=== PATIENT | female | born 1985 | race African-American/Black ===

== ENCOUNTER 2017-02-15 13:30 | Emergency (ER) | payer SELFPAY ==
[~2017-02-15] VITALS: Ht 152.4 cm; Wt 53.1 kg
[2017-02-15 14:15] VITALS: BP 101/71
== END 2017-02-15 15:32 | disposition home or self-care (01) ==
LOC: ER 13:40
DX: S63.601A Unspecified sprain of right thumb, initial encounter (principal); J45.909 Unspecified asthma, uncomplicated; Z98.51 Tubal ligation status; Z88.6 Allergy status to analgesic agent; X58.XXXA Exposure to other specified factors, initial encounter; Y99.8 Other external cause status; Y93.89 Activity, other specified; Y92.488 Other paved roadways as the place of occurrence of the external cause
CPT/HCPCS: 73130

== ENCOUNTER 2018-09-04 15:51 | Emergency (ER) | payer MEDICAID ==
[~2018-09-04] VITALS: Ht 152.4 cm; Wt 53.5 kg
[2018-09-04] MEDS ORDERED: SODIUM CHLORIDE 0.9% 1,000 ML IV ONE (15:55)
[2018-09-04 16:15] VITALS: BP 117/76
[2018-09-04 16:54] LABS: Albumin 3.9 g/dL (3.4-5.0); Anion Gap 5 (5-15); Blood Urea Nitrogen 9 mg/dL (7-18); Calcium 8.4 mg/dL (8.5-10.1); Carbon Dioxide 26 mmol/L (21-32); Chloride 107 mmol/L (98-107); Glucose 78 mg/dL (74-106); Magnesium 2.3 mg/dL (1.6-2.6); Potassium 3.8 mmol/L (3.5-5.1); Sodium 138 mmol/L (136-145)
[2018-09-04 17:00] LABS: Alanine Aminotransferase 20 U/L (13-56); Alkaline Phosphatase 45 U/L (45-117); Aspartate Aminotransferase 21 U/L (15-37); BUN/Creatinine Ratio 13.6; Bilirubin, Total 0.8 mg/dL (0.2-1.0); GFR African American 132 mL/min; GFR Non-African American 109 mL/min; Total Protein 7.6 g/dL (6.4-8.2)
[2018-09-04 17:09] LABS: Basophils # (auto) 0 uL; Eosinophils # (auto) 0.1 uL; Lymphocytes # (auto) 1.3 uL; Monocytes # (auto) 0.8 uL
[2018-09-04 17:12] LABS: Basophils % (auto) 0.6 % (0.0-2.0); Eosinophils % (auto) 1.7 % (0.0-7.0); Hemoglobin 10.4 g/dL (12.2-16.2); Lymphocytes % (auto) 19.9 % (10.0-50.0); Mean Corpuscular Hemoglobin 25.3 pg (28.0-32.0); Mean Corpuscular Hgb Conc. 32.4 g/dL (32.0-36.0); Mean Corpuscular Volume 77.9 fL (80.0-100.0); Monocytes % (auto) 12.2 % (0.0-12.0); Neutrophils # (auto) 4.3 uL; Neutrophils % (auto) 65.6 % (37.0-80.0); Platelet Count (auto) 303 10^3/uL (140-450); Red Blood Cells 4.11 10^6/uL (4.0-5.20); Red Cell Distribution Width 15.7 % (11.8-14.3); White Blood Cell 6.5 10^3/uL (4.4-10.8)
[2018-09-04 17:22] LABS: INR 1.02 (0.9-1.15); Partial Thromboplastin Time 32.1 sec (23.78-33.04); Prothrombin Time 10.9 sec (9.27-12.13)
[2018-09-04 18:03] LABS: Urine Bacteria NONE SEEN /hpf (None Seen); Urine Blood TRACE /uL (Negative); Urine Specific Gravity 1.013 (1.001-1.035); Urine WBC 1 /hpf (0 - 5)
== END 2018-09-04 19:00 | disposition left against medical advice (07) ==
LOC: EDBD 15:51 → ER 15:54
DX: R55 Syncope and collapse (principal); R11.2 Nausea with vomiting, unspecified; R06.02 Shortness of breath; Z88.6 Allergy status to analgesic agent
CPT/HCPCS: 36415; 70450; 80053; 81001; 81025; 82962; 83735; 84484; 85025; 85610; 85730; 94761

== ENCOUNTER 2019-06-12 11:09 | Emergency (ER) | payer MEDICAID ==
[~2019-06-12] VITALS: Ht 177.8 cm; Wt 50.8 kg
[2019-06-12 12:07] VITALS: BP 112/73
[2019-06-12 12:11] LABS: Urine Bacteria NONE SEEN /hpf (None Seen); Urine Blood TRACE /uL (Negative); Urine Mucus FEW (None Seen); Urine Specific Gravity 1.021 (1.001-1.035); Urine WBC 1 /hpf (0 - 5)
== END 2019-06-12 14:28 | disposition home or self-care (01) ==
LOC: ER 11:09
DX: R10.2 Pelvic and perineal pain (principal); J45.909 Unspecified asthma, uncomplicated; Z87.42 Personal history of other diseases of the female genital tract; Z88.5 Allergy status to narcotic agent; Z88.8 Allergy status to other drugs, medicaments and biological substances
CPT/HCPCS: 76856; 81001

== ENCOUNTER 2020-04-23 14:46 | Emergency (ER) | payer MEDICAID ==
[~2020-04-23] VITALS: Ht 154.9 cm; Wt 54.4 kg
[2020-04-23 14:55] VITALS: BP 106/68
[2020-04-23 16:48] LABS: Urine Amorphous Crystal FEW /hpf (None Seen); Urine Bacteria FEW /hpf (None Seen); Urine Blood Negative /uL (Negative); Urine Mucus FEW (None Seen); Urine Specific Gravity 1.017 (1.001-1.035); Urine WBC 4 /hpf (0 - 5)
== END 2020-04-23 18:43 | disposition left against medical advice (07) ==
LOC: ER 14:46
DX: R10.31 Right lower quadrant pain (principal); Z53.21 Procedure and treatment not carried out due to patient leaving prior to being seen by health care provider
CPT/HCPCS: 81001; 81025

== ENCOUNTER 2020-05-04 11:38 | Emergency (ER) | payer MEDICAID ==
[~2020-05-04] VITALS: Ht 152.4 cm; Wt 54.4 kg
[2020-05-04 12:25] LABS: Urine Bacteria NONE SEEN /hpf (None Seen); Urine Blood Negative /uL (Negative); Urine Mucus FEW (None Seen); Urine Specific Gravity 1.017 (1.001-1.035); Urine WBC 2 /hpf (0 - 5)
[2020-05-04 13:31] LABS: Basophils # (auto) 0.1 10 ^3/uL (0-0.2); Eosinophils # (auto) 0.1 10 ^3/uL (0-0.8); Eosinophils % (auto) 1.9 % (0.0-7.0); Hematocrit 33.4 % (36.0-46.0); Hemoglobin 10.7 g/dL (12.2-16.2); Lymphocytes # (auto) 1.1 10 ^3/uL (0.4-5.4); Lymphocytes % (auto) 21.1 % (10.0-50.0); Mean Corpuscular Hemoglobin 24.4 pg (28.0-32.0); Mean Corpuscular Volume 76.1 fL (80.0-100.0); Monocytes # (auto) 0.5 10 ^3/uL (0-1.3); Monocytes % (auto) 9.6 % (0.0-12.0); Neutrophils # (auto) 3.5 10 ^3/uL (1.6-8.6); Neutrophils % (auto) 66.4 % (37.0-80.0); Nucleated Red Blood Cells % 0.1 %; Platelet Count (auto) 334 10^3/uL (140-450); Red Blood Cells 4.39 10^6/uL (4.0-5.20); Red Cell Distribution Width 16.4 % (11.8-14.3); White Blood Cell 5.3 10^3/uL (4.4-10.8)
[2020-05-04 13:51] VITALS: BP 113/81
[2020-05-04 14:58] LABS: Albumin 4.1 g/dL (3.4-5.0); Calcium 8.6 mg/dL (8.5-10.1); Potassium 3.9 mmol/L (3.5-5.1)
[2020-05-04] MEDS ORDERED: KETOROLAC TROMETH 60MG/2ML VIAL IM ONE (15:00)
[2020-05-04 15:01] LABS: BUN/Creatinine Ratio 6.8; Total Protein 7.9 g/dL (6.4-8.2)
[2020-05-04] MEDS ORDERED: KETOROLAC TROMETH 60MG/2ML VIAL ONE (15:03)
== END 2020-05-04 15:20 | disposition home or self-care (01) ==
LOC: ER 11:38
DX: R10.31 Right lower quadrant pain (principal); M54.41 Lumbago with sciatica, right side
CPT/HCPCS: 36415; 74176; 80053; 81001; 81025; 83690; 85025; 96372; 99284; J1885

== ENCOUNTER 2021-10-30 20:17 | Inpatient (IN) | payer MEDICAID ==
[~2021-10-30] VITALS: Ht 152.4 cm; Wt 68.2 kg
[2021-10-30] MEDS ORDERED: ONDANSETRON HCL 4 MG/2 ML VIAL IV ONE (20:45)
[2021-10-30] MEDS ORDERED: SODIUM CHLORIDE 0.9% 1,000 ML IV ONE (20:45)
[2021-10-30] MEDS ORDERED: HYDROmorphone HCL 2 MG/ML VL IV ONE (20:45)
[2021-10-30 21:27] LABS: Urine Bacteria NONE SEEN /hpf (None Seen); Urine Blood 1+ /uL (Negative); Urine Hyaline Cast FEW /lpf (0 - 2); Urine Specific Gravity 1.006 (1.001-1.035); Urine WBC 13 /hpf (0 - 5)
[2021-10-30 22:18] LABS: Basophils # (auto) 0 10 ^3/uL (0-0.2); Basophils % (auto) 0.3 % (0.0-2.0); Eosinophils # (auto) 0 10 ^3/uL (0-0.8); Eosinophils % (auto) 0.5 % (0.0-7.0); Hematocrit 30.3 % (36.0-46.0); Hemoglobin 9.9 g/dL (12.2-16.2); Lymphocytes # (auto) 0.7 10 ^3/uL (0.4-5.4); Mean Corpuscular Hemoglobin 24.7 pg (28.0-32.0); Mean Corpuscular Hgb Conc. 32.5 g/dL (32.0-36.0); Mean Corpuscular Volume 75.8 fL (80.0-100.0); Monocytes # (auto) 1.4 10 ^3/uL (0-1.3); Monocytes % (auto) 13.3 % (0.0-12.0); Neutrophils # (auto) 8.3 10 ^3/uL (1.6-8.6); Neutrophils % (auto) 78.9 % (37.0-80.0); Red Blood Cells 3.99 10^6/uL (4.0-5.20); White Blood Cell 10.5 10^3/uL (4.4-10.8)
[2021-10-30 22:37] LABS: Albumin 3.5 g/dL (3.4-5.0); Calcium 8.7 mg/dL (8.5-10.1); Potassium 3.5 mmol/L (3.5-5.1)
[2021-10-30 22:41] LABS: Bilirubin, Total 0.5 mg/dL (0.2-1.0); Total Protein 7.7 g/dL (6.4-8.2)
[2021-10-30] MEDS ORDERED: HYDROmorphone HCL 2 MG/ML VL IM ONE (23:30)
[2021-10-30] MEDS ORDERED: ONDANSETRON ODT 4 MG TAB PO ONE (23:30)
[2021-10-31 01:49] LABS: Amphetamine Screen, Urine NEGATIVE (NEGATIVE); Barbiturate Scree,Urine NEGATIVE (NEGATIVE); Benzodiazephine Screen, Urine NEGATIVE (NEGATIVE); Cannabinoid Screen, Urine NEGATIVE (NEGATIVE); Cocaine Screen, Urine NEGATIVE (NEGATIVE); Opiate Scree,Urine NEGATIVE (NEGATIVE); Phencyclidine Screen, Urine NEGATIVE (NEGATIVE)
[2021-10-31] MEDS ORDERED: cefTRIAXone SOD 1,000 MG VL IM ONE (02:15)
[2021-10-31] MEDS ORDERED: ACETAMINOPHEN 325 MG TAB PO PRN (03:15)
[2021-10-31] MEDS ORDERED: TEMAZEPAM 15 MG CAP PO PRN (03:15)
[2021-10-31] MEDS ORDERED: SODIUM CHLORIDE 0.9% 1,000 ML IV SCH (03:15)
[2021-10-31] MEDS ORDERED: cefTRIAXone 1GM/50ML D5W 50 ML IV ONE (03:45)
[2021-10-31 04:21] LABS: % Iron Saturation 4.6 % (15-50)
[2021-10-31] MEDS: AZITHROMYCIN 500MG/ 250ML 250 ML IV SCH ×2 (05:29→22:00)
[2021-10-31] MEDS: MORPHINE SULFATE 4 MG/ML SYR/VIAL IV PRN ×2 (05:32→13:00)
[2021-10-31] MEDS: ONDANSETRON HCL 4 MG/2 ML VIAL IV PRN ×2 (06:41→19:38)
[2021-10-31 10:10] VITALS: BP 97/64
[2021-10-31] MEDS: HYDROcodone-ACET 5/325MG TAB PO PRN ×2 (10:52→17:35)
[2021-10-31 12:43] VITALS: BP 106/69
[2021-10-31] MEDS: LACTATED RINGER'S 1,000 ML IV SCH ×2 (14:15→16:15)
[2021-10-31 17:21] VITALS: BP 92/55
[2021-10-31] MEDS: FERROUS SULFATE 325mg EC TAB PO SCH (17:35)
[2021-10-31] MEDS: cefTRIAXone 1GM/50ML D5W 50 ML IV SCH (21:08)
[2021-10-31] MEDS: HEPARIN SODIUM (PORCINE) 5000 UNITS/ML 1ML VIAL SC SCH (21:30)
[2021-10-31 21:40] VITALS: BP 102/53
[2021-11-01] MEDS: HYDROcodone-ACET 5/325MG TAB PO PRN (03:58)
[2021-11-01 05:00] VITALS: BP 100/59
[2021-11-01] MEDS: HEPARIN SODIUM (PORCINE) 5000 UNITS/ML 1ML VIAL SC SCH ×3 (06:26→22:18)
[2021-11-01 07:08] LABS: Basophils # (auto) 0 10 ^3/uL (0-0.2); Eosinophils # (auto) 0.1 10 ^3/uL (0-0.8); Hematocrit 28.8 % (36.0-46.0); White Blood Cell 6.5 10^3/uL (4.4-10.8)
[2021-11-01 07:10] LABS: Basophils % (auto) 0.5 % (0.0-2.0); Calcium 8.5 mg/dL (8.5-10.1); Eosinophils % (auto) 1.7 % (0.0-7.0); Hemoglobin 9.5 g/dL (12.2-16.2); Lymphocytes # (auto) 1.1 10 ^3/uL (0.4-5.4); Lymphocytes % (auto) 17.8 % (10.0-50.0); Magnesium 2.6 mg/dL (1.6-2.6); Mean Corpuscular Hemoglobin 24.7 pg (28.0-32.0); Mean Corpuscular Hgb Conc. 32.9 g/dL (32.0-36.0); Mean Corpuscular Volume 75.1 fL (80.0-100.0); Monocytes # (auto) 0.9 10 ^3/uL (0-1.3); Monocytes % (auto) 13.4 % (0.0-12.0); Neutrophils # (auto) 4.3 10 ^3/uL (1.6-8.6); Neutrophils % (auto) 66.6 % (37.0-80.0); Potassium 3.6 mmol/L (3.5-5.1); Red Blood Cells 3.84 10^6/uL (4.0-5.20); Red Cell Distribution Width 16.7 % (11.8-14.3)
[2021-11-01 07:12] LABS: BUN/Creatinine Ratio 3.7; Phosphorus 2.3 mg/dL (2.5-4.90)
[2021-11-01] MEDS: FERROUS SULFATE 325mg EC TAB PO SCH ×2 (08:00→18:17)
[2021-11-01] MEDS: ONDANSETRON HCL 4 MG/2 ML VIAL IV PRN (08:43)
[2021-11-01 09:00] VITALS: BP 109/63
[2021-11-01] MEDS ORDERED: POTASSIUM PHOSPHATE 26.4 MEQ in SODIUM CHL 0.9% 100 ML IV ONE (09:00)
[2021-11-01] MEDS: LACTATED RINGER'S 1,000 ML IV SCH (10:15)
[2021-11-01 13:00] VITALS: BP 116/68
[2021-11-01 17:00] VITALS: BP 108/71
[2021-11-01] MEDS: cefTRIAXone 1GM/50ML D5W 50 ML IV SCH (21:03)
[2021-11-01 22:00] VITALS: BP 115/77
[2021-11-01] MEDS: AZITHROMYCIN 500MG/ 250ML 250 ML IV SCH (22:18)
[2021-11-02] MEDS: HYDROcodone-ACET 5/325MG TAB PO PRN (00:07)
[2021-11-02] MEDS: ONDANSETRON HCL 4 MG/2 ML VIAL IV PRN (00:28)
[2021-11-02 05:00] VITALS: BP 103/55
[2021-11-02 05:40] LABS: Basophils # (auto) 0.1 10 ^3/uL (0-0.2); Eosinophils # (auto) 0.2 10 ^3/uL (0-0.8); Monocytes # (auto) 0.6 10 ^3/uL (0-1.3); Neutrophils # (auto) 3.4 10 ^3/uL (1.6-8.6)
[2021-11-02 05:42] LABS: Eosinophils % (auto) 3.2 % (0.0-7.0); Hematocrit 33.1 % (36.0-46.0); Hemoglobin 10.8 g/dL (12.2-16.2); Lymphocytes # (auto) 1.7 10 ^3/uL (0.4-5.4); Lymphocytes % (auto) 28.7 % (10.0-50.0); Mean Corpuscular Hemoglobin 24.6 pg (28.0-32.0); Mean Corpuscular Hgb Conc. 32.5 g/dL (32.0-36.0); Mean Corpuscular Volume 75.7 fL (80.0-100.0); Neutrophils % (auto) 57.1 % (37.0-80.0); Red Blood Cells 4.37 10^6/uL (4.0-5.20)
[2021-11-02] MEDS: HEPARIN SODIUM (PORCINE) 5000 UNITS/ML 1ML VIAL SC SCH (05:59)
[2021-11-02 06:07] LABS: Potassium 3.5 mmol/L (3.5-5.1)
[2021-11-02 06:12] LABS: BUN/Creatinine Ratio 5.1; Calcium 8.8 mg/dL (8.5-10.1); Phosphorus 3.3 mg/dL (2.5-4.90)
[2021-11-02] MEDS: FERROUS SULFATE 325mg EC TAB PO SCH ×2 (08:15→17:47)
[2021-11-02 09:00] VITALS: BP 109/74
[2021-11-02 13:00] VITALS: BP 112/73
[2021-11-02 17:00] VITALS: BP 104/69
[2021-11-02] MEDS: cefTRIAXone 1GM/50ML D5W 50 ML IV SCH (21:31)
[2021-11-02 21:56] VITALS: BP 105/47
[2021-11-02] MEDS: AZITHROMYCIN 500MG/ 250ML 250 ML IV SCH (23:03)
[2021-11-03 05:00] VITALS: BP 103/67
[2021-11-03] MEDS: FERROUS SULFATE 325mg EC TAB PO SCH (08:00)
[2021-11-03 09:00] VITALS: BP 108/73
[2021-11-03] MEDS ORDERED: ENOXAPARIN SOD 40 MG/0.4 ML SYRINGE SC SCH (10:00)
[2021-11-03 13:00] VITALS: BP 105/72
[2021-11-03] MEDS ORDERED: cefTRIAXone 1GM/50ML D5W 50 ML IV SCH (14:33)
[2021-11-03] MEDS ORDERED: AZIT250T8 PO (14:50)
[2021-11-03] MEDS ORDERED: FER325T PO (14:50)
[2021-11-03] MEDS ORDERED: CEFD300C2 PO (14:50)
[2021-11-03 16:31] VITALS: BP 105/72
[2021-11-03 16:59] VITALS: BP 111/74
== END 2021-11-03 17:45 | disposition home or self-care (01) | DRG 139 ==
LOC: ER 20:20 → OVERFLOW 10-31 03:02 → WEST WING 10-31 09:30
PROVIDERS: ADMIT Nurse Practitioner; ATTEND Hospitalist
DX: J18.9 Pneumonia, unspecified organism (principal); N17.9 Acute kidney failure, unspecified; E83.39 Other disorders of phosphorus metabolism; N39.0 Urinary tract infection, site not specified; N18.9 Chronic kidney disease, unspecified; D50.9 Iron deficiency anemia, unspecified; N20.0 Calculus of kidney; Z68.29 Body mass index [BMI] 29.0-29.9, adult; E66.3 Overweight; J45.909 Unspecified asthma, uncomplicated; F41.9 Anxiety disorder, unspecified; M79.661 Pain in right lower leg; Z20.822 Contact with and (suspected) exposure to COVID-19
CPT/HCPCS: 36415; 71046; 74176; 80048; 80053; 80307; 81001; 83540; 83550; 83735; 83880; 84100; 84702; 85025; 87040; 87086; 87088; 93005; 93970; 96365; 96372; 96375; G0378; J0696; J2405; Q0162

== ENCOUNTER 2021-12-16 09:38 | Emergency (ER) | payer MEDICAID ==
[~2021-12-16] VITALS: Ht 152.4 cm; Wt 57.6 kg
[~2021-12-16 09:38] MED LIST: AZIT250T8 PO; CEFD300C2 PO; FER325T PO
[2021-12-16 10:19] VITALS: BP 102/76
[2021-12-16] MEDS ORDERED: METH500T22 PO (10:33)
[2021-12-16] MEDS ORDERED: IBUP600T27 PO (10:33)
== END 2021-12-16 10:36 | disposition home or self-care (01) ==
LOC: ER 09:38
DX: S76.011A Strain of muscle, fascia and tendon of right hip, initial encounter (principal); J45.909 Unspecified asthma, uncomplicated; Z98.51 Tubal ligation status; X50.1XXA Overexertion from prolonged static or awkward postures, initial encounter; Y93.01 Activity, walking, marching and hiking; Y92.89 Other specified places as the place of occurrence of the external cause; Y99.8 Other external cause status
CPT/HCPCS: 73502

== ENCOUNTER 2022-05-15 15:54 | Emergency (ER) | payer MEDICAID ==
[~2022-05-15] VITALS: Ht 152.4 cm; Wt 59.5 kg
[~2022-05-15 15:54] MED LIST changes: +IBUP600T27 PO; +METH500T22 PO
[2022-05-15 16:08] VITALS: BP 128/95
[2022-05-15 16:58] LABS: Basophils # (auto) 0.1 10 ^3/uL (0-0.2); Eosinophils # (auto) 0.3 10 ^3/uL (0-0.8); Hemoglobin 10.2 g/dL (12.2-16.2); Lymphocytes # (auto) 1.5 10 ^3/uL (0.4-5.4); Monocytes # (auto) 0.5 10 ^3/uL (0-1.3); Red Cell Distribution Width 16.4 % (11.8-14.3)
[2022-05-15 17:00] LABS: Basophils % (auto) 1.1 % (0.0-2.0); Eosinophils % (auto) 5.3 % (0.0-7.0); Hematocrit 32.3 % (36.0-46.0); Lymphocytes % (auto) 25.4 % (10.0-50.0); Mean Corpuscular Hemoglobin 23.9 pg (28.0-32.0); Mean Corpuscular Hgb Conc. 31.5 g/dL (32.0-36.0); Mean Corpuscular Volume 75.9 fL (80.0-100.0); Monocytes % (auto) 8.3 % (0.0-12.0); Neutrophils # (auto) 3.6 10 ^3/uL (1.6-8.6); Neutrophils % (auto) 59.9 % (37.0-80.0); Red Blood Cells 4.26 10^6/uL (4.0-5.20)
[2022-05-15 17:16] LABS: Calcium 9.1 mg/dL (8.5-10.1); Potassium 4.2 mmol/L (3.5-5.1)
[2022-05-15 17:19] LABS: Albumin 3.9 g/dL (3.4-5.0); BUN/Creatinine Ratio 11.5; Total Protein 7.6 g/dL (6.4-8.2)
[2022-05-15 17:22] LABS: Bilirubin, Total 0.6 mg/dL (0.2-1.0)
[2022-05-15 17:27] LABS: Urine Bacteria FEW /hpf (None Seen); Urine Blood Negative /uL (Negative); Urine Specific Gravity 1.015 (1.001-1.035); Urine WBC 8 /hpf (0 - 5)
== END 2022-05-15 20:40 | disposition left against medical advice (07) ==
LOC: ER 15:54
DX: R10.31 Right lower quadrant pain (principal); R10.2 Pelvic and perineal pain; Z53.21 Procedure and treatment not carried out due to patient leaving prior to being seen by health care provider
CPT/HCPCS: 36415; 80053; 81001; 84702; 85025

== ENCOUNTER 2022-08-07 15:21 | Emergency (ER) | payer MEDICAID ==
[~2022-08-07] VITALS: Ht 152.4 cm; Wt 61.7 kg
[2022-08-07 16:08] LABS: Hematocrit 31.2 % (36.0-46.0); Nucleated Red Blood Cells % 0.1 %
[2022-08-07 16:10] LABS: Basophils # (auto) 0.1 10 ^3/uL (0-0.2); Basophils % (auto) 1.1 % (0.0-2.0); Eosinophils # (auto) 0.2 10 ^3/uL (0-0.8); Eosinophils % (auto) 2.8 % (0.0-7.0); Lymphocytes # (auto) 1.6 10 ^3/uL (0.4-5.4); Lymphocytes % (auto) 24.2 % (10.0-50.0); Mean Corpuscular Hemoglobin 24.4 pg (28.0-32.0); Mean Corpuscular Volume 76.1 fL (80.0-100.0); Monocytes # (auto) 0.6 10 ^3/uL (0-1.3); Monocytes % (auto) 9.9 % (0.0-12.0); Red Blood Cells 4.09 10^6/uL (4.0-5.20); Red Cell Distribution Width 17.7 % (11.8-14.3); White Blood Cell 6.5 10^3/uL (4.4-10.8)
[2022-08-07 16:23] LABS: Urine Blood 3+ /uL (Negative); Urine Specific Gravity 1.019 (1.001-1.035)
[2022-08-07 16:28] LABS: Albumin 3.7 g/dL (3.4-5.0); Calcium 8.8 mg/dL (8.5-10.1); Potassium 4.1 mmol/L (3.5-5.1)
[2022-08-07 16:32] LABS: BUN/Creatinine Ratio 8.8; Bilirubin, Total 0.4 mg/dL (0.2-1.0); Total Protein 6.8 g/dL (6.4-8.2)
[2022-08-07] MEDS ORDERED: IOHEXOL 300 MG/ML 100ML BOTTLE IJ ONE (17:12)
[2022-08-07] MEDS ORDERED: OMNIPAQUE ORAL SOLN 500ml 12mg/ml PO ONE (17:12)
[2022-08-07] MEDS ORDERED: CEPH-510 PO (19:29)
[2022-08-07 19:57] VITALS: BP 127/82
== END 2022-08-07 20:01 | disposition home or self-care (01) ==
LOC: ER 15:21
DX: N20.0 Calculus of kidney (principal); K57.30 Diverticulosis of large intestine without perforation or abscess without bleeding; D64.9 Anemia, unspecified; J45.909 Unspecified asthma, uncomplicated; Z98.51 Tubal ligation status; Z32.02 Encounter for pregnancy test, result negative
CPT/HCPCS: 36415; 74176; 80053; 81003; 81025; 83690; 84702; 85025